=== PATIENT | female | born 1990 | race Hispanic/Latino ===

== ENCOUNTER 2019-04-13 18:16 | Inpatient (IN) | payer BC, MEDICAID ==
[~2019-04-13 18:16] MED LIST: Lidocaine 2% MPF 10 ML AMP (For Epidural Use) ONE
[2019-04-13 20:20] VITALS: BMI 27.3
[2019-04-13] MEDS ORDERED: Acetaminophen 500 MG TAB PO PRN (20:27)
[2019-04-13] MEDS ORDERED: Lidocaine 1% (PF) 30 ML VIAL SC PRN (20:27)
[2019-04-13] MEDS ORDERED: Carboprost 250 MCG/ML AMP IM PRN (20:27)
[2019-04-13] MEDS ORDERED: hydrALAZINE 20 MG/ML VIAL SLOW IVP PRN (20:27)
[2019-04-13] MEDS ORDERED: Diphenoxylate HCl/Atropine Tablet PO PRN (20:27)
[2019-04-13] MEDS ORDERED: Promethazine HCl 25 MG/ML VIAL IM PRN (20:27)
[2019-04-13] MEDS ORDERED: NS / Oxytocin 40 units/1000ml 1,000 ML IV PRN (20:27)
[2019-04-13] MEDS ORDERED: Methylergonovine 0.2 MG/ML VIAL IM PRN (20:27)
[2019-04-13] MEDS ORDERED: Misoprostol 200 MCG TAB PR PRN (20:27)
[2019-04-13] MEDS ORDERED: HYDROcodone/Acetaminophen 5/325 mg Tablet PO PRN ×2 (20:27)
[2019-04-13] MEDS ORDERED: Ondansetron PF 4 MG/2 ML Vial IVP PRN (20:27)
[2019-04-13] MEDS ORDERED: Ibuprofen 800 MG TAB PO PRN (20:27)
[2019-04-13 21:03] LABS: Hemoglobin 11.3 g/dL (12.0-16.0); Mean Corpuscular HGB CONC 34.6 g/dL (32.0-36.0); Mean Corpuscular Hemoglobin 29.1 pg (27.0-31.0); Mean Corpuscular Volume 84.2 fL (78.0-98.0); Mean Platelet Volume 10.1 fL (7.4-10.4); Platelet Count 213 thou/uL (130-400); RBC Distribution Width 11.5 % (11.5-14.5); Red Blood Cell (RBC) Count 3.89 mill/uL (4.20-5.40); White Blood Cell (WBC) Count 13.5 thou/uL (4.8-10.8)
--- NOTE | 2019-04-13 21:37 | PRG ---
DATE OF SERVICE: 04/13/2019 LDR 11 COOK Balloon Placement The time of intervention was roughly 2099 until 2109. Cook cervical ripening balloon in a prior patient. In brief, I was asked by Dr. Roman to remove the two cervical dilators that had been placed in the office and placed a Cook cervical balloon. I did review with the patient in Czech this process and the indication which was cervical ripening for a trial of labor after . Patient verbally agreed. I was able to use a speculum and visualized the two mechanical cervical dilators which were placed earlier in the day by Dr. Roman. I have removed two devices, which were the same two that were placed before. There was no bleeding with this procedure. Patient verbalized and visualized both of the removed inserts. I then placed a Cook cervical ripening balloon as her cervix was visually 1 cm. This was done according to the instructions for use. The first balloon was inflated with 40 mL of saline and then the device was withdrawn until the vaginal balloon was visible. At this point, I have removed the speculum and I inflated the vaginal balloon with 20 mL of saline, then per protocol, I continued to install saline until the maximum of 80 mL per each balloon. This was done at 2105. Patient tolerated the procedure well with minimal discomfort. I did explain to the patient that there were two balloons and the process of how this works. These will stay in place for 12 hours or less based on clinical scenario. There were no complications and patient is resting well after placement. Job ID: [id number] MTDD
[2019-04-13 21:43] LABS: Syphilis Antibody Nonreactive (Nonreactive); Syphilis Antibody Index 0.04 S/CO (<1.00 Non-Reactive)
[2019-04-13 23:10] LABS: Hep B Surf Ag Non-Reactive S/CO (NonReactive)
[2019-04-14] MEDS: Lactated Ringer's 1,000 ML IV SCH ×2 (00:40→16:00)
[2019-04-14] MEDS: Butorphanol Tartrate 1 MG/ML VIAL SLOW IVP PRN ×4 (00:40→11:12)
--- NOTE | 2019-04-14 08:02 | PDOC.LDHP ---
Labor and Delivery H&P Chief complaint: scheduled induction Current gestational age (weeks): 39 Current complications: IUGR Abnormal US findings: Yes ( pyelectasis, stable on serial sono) Current medications: pre-millicent vitamins Previous surgical history: low tranverse CS Allergies/Adverse Reactions: Allergies Allergy/AdvReac Type Severity Reaction Status Date / Time No Known Allergies Allergy Verified 04/13/19 19:49
[2019-04-14] MEDS ORDERED: NS w/ Oxytocin 10 units 500 ML IV SCH (08:15)
--- NOTE | 2019-04-14 12:37 | PDOC.LDPN ---
Labor & Delivery Progress Note - Subjective Subjective: painful contractions - Objective Abnormal vital signs: severe range BP 186/103 General: breathing through contractions Uterine fundus: non tender Dilation: 2 Effacement: 50% Station: -2 FHT: category 1 [place] contractions every: 3min -: hydralazine for severe BP, no PIH sx. W/u with labs. Mag for persistent severes, sx or lab abn. Advised pt on epidural, pt desires now. Rail Car Loader used.
[2019-04-14] MEDS ORDERED: hydrALAZINE 20 MG/ML VIAL SLOW IVP PRN (12:38)
[2019-04-14] MEDS ORDERED: Fentanyl 4 mcg/Bup 0.1% Cadd 100 ML ONE (12:39)
[2019-04-14] MEDS ORDERED: Bupivacaine 0.25% HCL 30 ML VIAL ONE (12:44)
[2019-04-14] MEDS ORDERED: Naloxone HCl 0.4 mg/ml Vial IVP PRN ×4 (13:42→19:41)
[2019-04-14] MEDS ORDERED: diphenhydrAMINE 50 MG/ML VIAL IVP PRN ×3 (13:42→21:04)
[2019-04-14] MEDS ORDERED: Acetaminophen 325 MG TAB PO PRN (13:42)
[2019-04-14] MEDS ORDERED: Promethazine HCl 25 MG/ML VIAL IM PRN ×3 (13:42→21:04)
[2019-04-14] MEDS ORDERED: Lactated Ringer's 500 ML IV PRN (13:42)
[2019-04-14] MEDS ORDERED: EPHEDRINE 25 MG/5 ML SYRINGE SLOW IVP PRN (13:42)
[2019-04-14] MEDS ORDERED: Ondansetron PF 4 MG/2 ML Vial IVP PRN ×3 (13:42→21:04)
[2019-04-14] MEDS ORDERED: Fentanyl 4 mcg/Bupivacaine 0.1% Cassette 100 ML EPIDURAL SCH (13:45)
[2019-04-14] MEDS ORDERED: Communication Order-Pharmacy FS SCH ×3 (13:45→21:15)
[2019-04-14 14:01] LABS: ALT (SGPT) 13 U/L (8-55); AST (SGOT) 14 U/L (5-34); Albumin 3.4 g/dL (3.5-5.0); Alkaline Phosphatase 217 U/L (40-110); Anion Gap 14 mmol/L (10-20); BUN (Urea Nitrogen) 5 mg/dL (7.0-18.7); Bilirubin, Total 0.3 mg/dL (0.2-1.2); Calc. Creatinine Clearance 156 mL/min (70-130); Calcium 9.4 mg/dL (7.8-10.44); Carbon Dioxide 20 mmol/L (22-29); Chloride 108 mmol/L (98-107); Estimated GFR-MDRD Greater than 90; Globulin 3.3 g/dL (2.4-3.5); Glucose 78 mg/dL (70-105); Potassium 3.8 mmol/L (3.5-5.1); Protein, Total 6.7 g/dL (6.0-8.3); Sodium 138 mmol/L (136-145)
[2019-04-14 14:47] LABS: Creatinine, Urine 20.85 mg/dL (47-110); Protein, Urine Random Quant Less than 10 mg/dL (1-14)
--- NOTE | 2019-04-14 18:21 | PDOC.LDPN ---
Labor & Delivery Progress Note - Subjective Subjective: comfortable - Objective Abnormal vital signs: mild range BPs General: NAD Uterine fundus: non tender Dilation: 3 Effacement: 75% Station: -2 (firm consistency) FHT: category 2, early decelerations, variable decelerations, variability present [place] contractions every: 3min -: DC pit, pt is not in labor and not progressing despite 24hr of induction with balloon x 12 and pitocin/AROM x 12hr. Dispo for RCS based on failed IOL. Once pitocin was d/c'd variables resolved and accels present with mod variability. Plan of care discussed with patient and she agrees to proceed.
[2019-04-14] MEDS ORDERED: Azithromycin 500 MG VIAL ONE (18:25)
[2019-04-14] MEDS ORDERED: Azithromycin 500 MG in Sodium Chloride 0.9% 250 ML 250 ML IVPB SCH (18:30)
[2019-04-14] MEDS ORDERED: CEFAZOLIN 2 GM in Premix Bag 1 BAG IVPB SCH (18:30)
[2019-04-14] MEDS ORDERED: PHENYLEPHRINE-NS 100 MCG/ML 10 ML SYRINGE ONE (19:08)
[2019-04-14] MEDS ORDERED: Ondansetron PF 4 MG/2 ML Vial ONE ×2 (19:08→20:08)
[2019-04-14] MEDS ORDERED: EPHEDRINE 25 MG/5 ML SYRINGE ONE (19:08)
[2019-04-14] MEDS ORDERED: MORPHINE 5 MG/10 ML PF VIAL ONE (19:08)
[2019-04-14] MEDS ORDERED: Oxytocin 10 UNITS/ML VIAL ONE (19:08)
[2019-04-14] MEDS ORDERED: Bupivacaine 0.75% W/DEXTROSE 8.25% 2 ML AMP ONE (19:08)
[2019-04-14] MEDS ORDERED: Glycopyrrolate 0.2 MG/ML 5 ML SYRINGE ONE (19:08)
[2019-04-14] MEDS: Bicitra 30 ML UDCUP PO SCH ×2 (19:12→19:17)
[2019-04-14] MEDS ORDERED: Lidocaine 2% 10 ML INJ ONE (19:27)
[2019-04-14] MEDS ORDERED: HYDROmorphone 2 MG/ML VIAL SLOW IVP PRN (19:40)
[2019-04-14] MEDS ORDERED: Ondansetron HCl/PF 4 MG/2 ML Vial IVP PRN (19:40)
[2019-04-14] MEDS ORDERED: Meperidine HCl/PF 25 MG/ML VIAL SLOW IVP PRN (19:40)
[2019-04-14] MEDS ORDERED: L&D-Morphine 4 MG/ML VIAL SLOW IVP PRN (19:40)
[2019-04-14] MEDS ORDERED: Naloxone HCl 0.4 mg/ml Vial IV PRN ×2 (19:41→21:04)
[2019-04-14] MEDS ORDERED: Promethazine HCl 25 MG SUPP PR PRN (19:41)
[2019-04-14] MEDS ORDERED: Ketorolac Tromethamine 30 MG/ML VIAL IVP SCH (19:45)
[2019-04-14 20:02] LABS: Actual Bicarbonate (HCO3v) 22 mEq/L (22-28); Base Excess -3.4 mEq/L (-2.0 to +3.0); pH (Cord, venous) 7.35 (7.32-7.43)
--- NOTE | 2019-04-14 20:13 | PDOC.OPDEL ---
OB Operative/Delivery Note Delivery Dr/Surgeon: Abel Assist: Silvio Pre-Delivery Diagnosis: arrest of dilation, other (IUGR, failed tolac) Procedure/Post Delivery Dx: repeat low transverse CS Weeks gestation: 39 Anesthesia: epidural - Findings A Sex: female - 1 min: 8 - 5 min: 9 - Additional Findings/Plan Placenta delivered: spontaneous findings: low transverse hysterotomy without extension, normal uterus, normal tubes, normal ovaries Estimated blood loss: 400 Compilations/Other Findings: NC x 1 Post delivery plan: routine recovery
[2019-04-14] MEDS ORDERED: Morphine CADD 1 MG/ML CADD IVPB PRN (21:04)
[2019-04-14] MEDS ORDERED: diphenhydrAMINE 50 MG/ML VIAL IM PRN (21:04)
[2019-04-14] MEDS ORDERED: diphenhydrAMINE 25 MG CAP PO PRN (21:04)
[2019-04-14] MEDS ORDERED: Zolpidem Tartrate 5 MG TAB PO PRN (21:04)
[2019-04-14] MEDS ORDERED: Morphine Sulfate 100 MG in Dextrose 5% in Water 98 ML IV SCH (21:28)
[2019-04-14] MEDS: Ketorolac Tromethamine 30 MG/ML VIAL IVP PRN (23:08)
[2019-04-15] MEDS: Lactated Ringer's 1,000 ML IV SCH ×2 (00:20→04:01)
--- NOTE | 2019-04-15 01:45 | OP ---
DATE OF PROCEDURE: 04/14/2019 PREOPERATIVE DIAGNOSES: 1. Intrauterine at 39 weeks and 1 day. 2. Intrauterine growth restriction. 3. hydronephrosis. 4. Prior section x1, failed trial of labor. POSTOPERATIVE DIAGNOSES: 1. Intrauterine at 39 weeks and 1 day. 2. Intrauterine growth restriction. 3. hydronephrosis. 4. Prior section x1, failed trial of labor. PROCEDURE PERFORMED: Repeat low transverse section via Pfannenstiel skin incision. ANESTHESIA: Epidural. ESTIMATED BLOOD LOSS: 400 mL. COMPLICATIONS: None. DRAINS: Mckeon catheter. PATHOLOGY: Placenta. INSTRUCTOR PHYSICAL EDUCATION SURGEON: Daniel Anguiano MD FINDINGS: Female infant, cephalic presentation, clear amniotic fluid. Apgars 8 and 9. Weight is pending. Hysterotomy without extension. Normal uterus, ovaries, and tubes bilaterally. DESCRIPTION OF PROCEDURE: The patient was taken to the operating room, where epidural anesthesia was found to be adequate. The patient was prepped and draped in a sterile fashion in the dorsal supine position with leftward tilt. After ensuring adequacy of anesthesia, a Pfannenstiel skin incision was made and carried down to the underlying subcutaneous tissue with the Bovie. The fascia was nicked in midline with the Bovie and carried laterally with Romo scissors. The superior aspect of the fascia was tented with 2 René's and dissected off the rectus with the Romo scissors. Rectus perforators were cauterized. The inferior aspect of the fascia was tented with 2 René's and dissected off the rectus down to the pubic symphysis with the Romo's. Rectus were bluntly divided in the midline. Peritoneum was bluntly entered into and manually retracted. The Joaquin O retractor was placed. The lower uterine segment was incised in a transverse fashion and extended with a Gorman maneuver. The infant's head was brought to the hysterotomy and did not deliver with a period of time of fundal pressure. Therefore, a vacuum was called for and placed on the crown and suction to the green zone at 50 mmHg was performed. Gentle traction was performed, however and the occiput was deflexed and this made it difficult. There was one pop-off that was replaced and taken to the green zone one more time; however, the occiput was brought more to the deflexed position and this allowed the head to deliver with gentle traction on the vacuum followed by the body. 's cord was clamped and infant was handed to awaiting Devendra team. Cord gas and cord blood were obtained. The placenta was allowed to spontaneously deliver. The uterus was exteriorized, cleared of all clots and debris. The uterus was placed back into the abdomen and repaired with a #1 Monocryl in a running locking fashion with excellent hemostasis. Pelvis and pericolic gutters were irrigated and suctioned. Hemostasis was again noted. The Joaquin O retractor was removed. The rectus muscles were examined and noted to be hemostatic. The fascia was reapproximated with 0 PDS x2 sutures with excellent reapproximation. The subcutaneous tissue was irrigated and cauterized of any bleeders and reapproximated with a 2-0 plain gut in a running fashion. The skin was closed with 4-0 Monocryl in subcuticular fashion. Dermabond was applied as well as a pressure dressing. The patient tolerated the procedure well. Sponge, lap, and needle counts were correct x2. The patient was taken to recovery room in stable condition. The patient received Ancef 2 g and azithromycin 500 mg prior to the procedure. Job ID: [id number]
[2019-04-15] MEDS: Ketorolac Tromethamine 30 MG/ML VIAL IVP PRN (05:20)
--- NOTE | 2019-04-15 11:29 | PDOC.PP ---
Post Progress Note Post Day #: 1 PO intake tolerated: yes Flatus: yes Ambulation: yes Vital Signs (12 hours) Temp Pulse Resp BP Pulse Ox 04/15/19 08:06 98.3 F 90 18 124/73 96 04/15/19 04:20 97.9 F 77 14 140/94 H 97 04/15/19 00:14 99.0 F 88 14 133/92 H 97 04/14/19 23:46 99.3 F 86 14 138/67 96 Weight Weight 154 lb - Physical Examination General: NAD Cardiovascular: RRR Respiratory: non-labored breathing Abdominal: no distention, appropriately TTP Fundus firm & at: umb-2 Extremities: negative homans (B) Skin: CS incision dry & intact Neurological: no gross focal deficits Psychiatric: normal affect Result Diagrams: 04/13/19 20:52 04/14/19 13:16 Additional Labs: Post Labs Blood Type O POSITIVE 04/13/19 21:15 Hep Bs Antigen Non-Reactive S/CO (NonReactive) 04/13/19 20:52 - Assessment/Plan POD1 s/p RCS VSSAF, occ mild range BP GHTN- no sx PIH, neg labs, monitor BP Meeting appropriate milestones, cont prn pain meds Rh pos RImm Cont postop care
[2019-04-15] MEDS ORDERED: HYDROcodone/Acetaminophen 5/325 mg Tablet PO PRN (20:53)
[2019-04-15] MEDS: Ibuprofen 800 MG TAB PO SCH (21:52)
[2019-04-15] MEDS: HYDROcodone/Acetaminophen 5/325 mg Tablet PO PRN (22:10)
[2019-04-15] MEDS ORDERED: Lanolin Ointment 7 GM TUBE TOP PRN (22:26)
[2019-04-16] MEDS: HYDROcodone/Acetaminophen 5/325 mg Tablet PO PRN (05:47)
[2019-04-16] MEDS: Ibuprofen 800 MG TAB PO SCH ×2 (05:47→14:28)
--- NOTE | 2019-04-16 08:03 | PDOC.PP ---
Post Progress Note Post Day #: 2 PO intake tolerated: yes Flatus: yes Ambulation: yes Vital Signs (12 hours) Temp Pulse Resp BP Pulse Ox 04/16/19 04:07 97.6 F 57 L 18 137/71 04/16/19 00:22 98.2 F 78 18 137/77 04/15/19 21:40 99.1 F 106 H 04/15/19 21:20 100.6 F H 109 H 16 132/77 99 Weight Weight 154 lb - Physical Examination General: NAD Respiratory: non-labored breathing Abdominal: no distention, appropriately TTP Fundus firm & at: umb-2 Extremities: negative homans (B) Skin: CS incision dry & intact Neurological: no gross focal deficits Psychiatric: normal affect Result Diagrams: 04/13/19 20:52 04/14/19 13:16 Additional Labs: Post Labs Blood Type O POSITIVE 04/13/19 21:15 Hep Bs Antigen Non-Reactive S/CO (NonReactive) 04/13/19 20:52 - Assessment/Plan POD2 s/p RCS VSSAF Met all postop milestones, pain controlled Mild asx anemia due to surgical blood loss, acute, DC on PNV with iron Rh pos rImm DC home FU 2w for inc check
[2019-04-16 09:45] VITALS: BP 128/73; TEMP 96.5
== END 2019-04-16 16:00 | disposition home or self-care (01) | DRG 787 ==
LOC: L&D 18:16 → 3SW 04-14 22:44 → EDSTATUS 04-20 16:07
PROVIDERS: ADMIT Student in an Organized Health Care Education/Training Program; ATTEND Student in an Organized Health Care Education/Training Program
PROC: 10D00Z1 Extraction of Products of Conception, Low, Open Approach (ICD-10-PCS; principal; 2019-04-14)
PROC: 0UCC7ZZ Extirpation of Matter from Cervix, Via Natural or Artificial Opening (ICD-10-PCS; 2019-04-14)
PROC: 10907ZC Drainage of Amniotic Fluid, Therapeutic from Products of Conception, Via Natural or Artificial Opening (ICD-10-PCS; 2019-04-14)
PROC: 0U7C7ZZ Dilation of Cervix, Via Natural or Artificial Opening (ICD-10-PCS; 2019-04-14)
PROC: 3E033VJ Introduction of Other Hormone into Peripheral Vein, Percutaneous Approach (ICD-10-PCS; 2019-04-14)
PROC: 3E0P7VZ Introduction of Hormone into Female Reproductive, Via Natural or Artificial Opening (ICD-10-PCS; 2019-04-14)
DX: O36.5930 Maternal care for other known or suspected poor fetal growth, third trimester, not applicable or unspecified (principal); D62 Acute posthemorrhagic anemia; O13.4 Gestational [pregnancy-induced] hypertension without significant proteinuria, complicating childbirth; O76 Abnormality in fetal heart rate and rhythm complicating labor and delivery; O34.211 Maternal care for low transverse scar from previous cesarean delivery; O35.8XX0 Maternal care for other (suspected) fetal abnormality and damage, not applicable or unspecified; O62.0 Primary inadequate contractions; O61.0 Failed medical induction of labor; O90.81 Anemia of the puerperium; Z3A.39 39 weeks gestation of pregnancy; Z37.0 Single live birth
CPT/HCPCS: 36415; 51702; 80053; 82570; 82805; 84156; 85027; 86780; 86850; 86900; 86901; 87340; 88307; J0360; J0456; J0595; J0690; J1885; J2001; J2270; J2274; J2405; J2590; J3490; J7070; Q0163; S0020